=== PATIENT | male | born 1955 | race Two or more races ===

== ENCOUNTER 2019-09-10 18:41 | Emergency (ER) | payer SELFPAY ==
[~2019-09-10] VITALS: Ht 175.3 cm; Wt 86.2 kg
[2019-09-10 22:24] VITALS: BP 144/85
[2019-09-11] MEDS ORDERED: IBUPROFEN 800 MG TAB PO ONE (00:30)
[2019-09-11] MEDS ORDERED: ACETAMINOPHEN/CODEINE#3 (300/30mg) TAB PO ONE (00:30)
== END 2019-09-11 01:23 | disposition home or self-care (01) ==
LOC: EDBD 18:41 → ER 18:43
DX: M54.5 Low back pain (principal); M62.838 Other muscle spasm; V43.52XA Car driver injured in collision with other type car in traffic accident, initial encounter; Y93.89 Activity, other specified; Y99.8 Other external cause status; Y92.410 Unspecified street and highway as the place of occurrence of the external cause
CPT/HCPCS: 71046; 72100

== ENCOUNTER → 2025-03-30 | Outpatient (CLI) | payer MEDICAID ==
[2025-03-30 10:08] LABS: Urine Bacteria None Seen /hpf (None Seen)
[2025-03-30 10:13] LABS: Basophils # (auto) 0.1 10 ^3/uL (0-0.2); Basophils % (auto) 0.8 % (0.0-2.0); Eosinophils # (auto) 0.3 10 ^3/uL (0-0.8); Eosinophils % (auto) 4.5 % (0.0-7.0); Hematocrit 44.6 % (41.0-53.0); Hemoglobin 15.3 g/dL (13.5-17.5); Lymphocytes % (auto) 31.3 % (10.0-50.0); Mean Corpuscular Hemoglobin 29.6 pg (28.0-32.0); Mean Corpuscular Hgb Conc. 34.3 g/dL (32.0-36.0); Mean Corpuscular Volume 86.4 fL (80.0-100.0); Monocytes # (auto) 0.5 10 ^3/uL (0-1.3); Monocytes % (auto) 7.3 % (0.0-12.0); Neutrophils # (auto) 3.6 10 ^3/uL (1.6-8.6); Neutrophils % (auto) 56.1 % (37.0-80.0); Nucleated Red Blood Cells % 0.1 %; Platelet Count (auto) 242 10^3/uL (140-450); Red Blood Cells 5.16 10^6/uL (4.5-5.90); Red Cell Distribution Width 13.5 % (11.8-14.3); Urine Blood Negative /uL (Negative); Urine Clarity Clear (Clear); Urine Color Light-Yellow (Yellow); Urine Protein, UAD Negative (Negative); Urine Specific Gravity 1.017 (1.001-1.035); Urine Squamous Epithelial Cell None Seen /hpf (<5); Urine Urobilinogen Normal (Negative); Urine WBC 1 /HPF (0-3); White Blood Cell 6.4 10^3/uL (4.4-10.8)
[2025-03-30 10:36] LABS: Uric Acid 5.6 mg/dL (3.7-9.2)
[2025-03-30 10:37] LABS: Magnesium 1.9 mg/dL (1.6-2.6)
[2025-03-31 05:08] LABS: PSA Free 0.24 ng/mL; Prostate Specific Antigen 0.9 ng/mL (0.0-4.0)
== END | disposition home or self-care (01) ==
LOC: LAB 09:30
PROVIDERS: ATTEND Internal Medicine
DX: Z13.31 Encounter for screening for depression (principal); Z68.36 Body mass index [BMI] 36.0-36.9, adult
CPT/HCPCS: 36415; 80061; 81001; 83036; 83735; 84154; 84443; 84550; 85025

== ENCOUNTER 2025-07-28 08:03 | Outpatient (CLI) | payer MEDICAID ==
[2025-07-28 08:23] LABS: Hematocrit 41.5 % (41.0-53.0); Hemoglobin 14.2 g/dL (13.5-17.5); Mean Corpuscular Hemoglobin 29.4 pg (28.0-32.0); Mean Corpuscular Volume 86.2 fL (80.0-100.0); Nucleated Red Blood Cells % 0.0 %
[2025-07-28 08:41] LABS: Alanine Aminotransferase 30 U/L (7-40); Albumin 4.2 g/dL (3.2-4.8); Alkaline Phosphatase 104 U/L (46-116); Anion Gap 6 (5-15); BUN/Creatinine Ratio 8.8 (10.0-20.0); Calcium 8.9 mg/dL (8.7-10.4); Carbon Dioxide 29 mmol/L (20-31); Chloride 107 mmol/L (98-107); Cholesterol 150 mg/dL (< 200); Glucose 106 mg/dL (74-106); HDL Cholesterol 45 mg/dL (40-59); Magnesium 2.0 mg/dL (1.6-2.6); Potassium 4.5 mmol/L (3.5-5.1); Sodium 142 mmol/L (136-145); Total Protein 7.1 g/dL (5.7-8.2); Triglycerides 97 mg/dL (< 150)
[2025-07-28 08:42] LABS: Bilirubin, Total 0.4 mg/dL (0.2-1.0)
[2025-07-28 08:43] LABS: Blood Urea Nitrogen 7 mg/dL (9-23)
[2025-07-28 08:49] LABS: Urine Protein, UAD Negative (Negative)
[2025-07-28 09:55] LABS: Uric Acid 5.6 mg/dL (3.7-9.2)
== END 2025-07-28 17:00 | disposition home or self-care (01) ==
LOC: LAB 08:03
PROVIDERS: ATTEND Internal Medicine
DX: E11.9 Type 2 diabetes mellitus without complications (principal); E78.49 Other hyperlipidemia; E61.2 Magnesium deficiency; E79.0 Hyperuricemia without signs of inflammatory arthritis and tophaceous disease; E55.9 Vitamin D deficiency, unspecified; D51.9 Vitamin B12 deficiency anemia, unspecified; R82.79 Other abnormal findings on microbiological examination of urine; R82.90 Unspecified abnormal findings in urine; R82.998 Other abnormal findings in urine; R94.6 Abnormal results of thyroid function studies; R68.89 Other general symptoms and signs
CPT/HCPCS: 36415; 80053; 80061; 81001; 82306; 82607; 82746; 83036; 83735; 84443; 84480; 84550; 85025; 87086

== ENCOUNTER 2025-11-15 09:31 | Outpatient (CLI) | payer MEDICAID ==
[2025-11-15 10:38] LABS: Urine Protein, UAD Negative (Negative)
[2025-11-15 11:08] LABS: Alanine Aminotransferase 25 U/L (7-40); Albumin 4.2 g/dL (3.2-4.8); Alkaline Phosphatase 110 U/L (46-116); Anion Gap 8 (5-15); Calcium 9.3 mg/dL (8.7-10.4); Carbon Dioxide 30 mmol/L (20-31); Chloride 105 mmol/L (98-107); Glucose 102 mg/dL (74-106); Potassium 4.4 mmol/L (3.5-5.1); Sodium 143 mmol/L (136-145)
[2025-11-15 11:09] LABS: BUN/Creatinine Ratio 8.9 (10.0-20.0); Blood Urea Nitrogen 7 mg/dL (9-23); Total Protein 6.9 g/dL (5.7-8.2); Triglycerides 96 mg/dL (< 150)
[2025-11-15 11:10] LABS: Cholesterol 147 mg/dL (< 200); HDL Cholesterol 44 mg/dL (40-59)
[2025-11-15 11:11] LABS: Bilirubin, Total 0.6 mg/dL (0.2-1.0)
== END 2025-11-15 17:00 | disposition home or self-care (01) ==
LOC: LAB 09:31
PROVIDERS: ATTEND Internal Medicine
DX: E78.49 Other hyperlipidemia (principal); E61.2 Magnesium deficiency; R94.6 Abnormal results of thyroid function studies; R68.89 Other general symptoms and signs; R73.09 Other abnormal glucose; E79.0 Hyperuricemia without signs of inflammatory arthritis and tophaceous disease; R82.998 Other abnormal findings in urine; E55.9 Vitamin D deficiency, unspecified; R82.90 Unspecified abnormal findings in urine; R82.79 Other abnormal findings on microbiological examination of urine; D51.9 Vitamin B12 deficiency anemia, unspecified
CPT/HCPCS: 36415; 80053; 80061; 81001; 82306; 82607; 82746; 83036; 84443; 85652; 87086